=== PATIENT | female | born 1985 | race African-American/Black ===

== ENCOUNTER 2017-06-28 14:13 | Emergency (ER) | payer SELFPAY ==
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
[2017-06-28 14:42] VITALS: BP 120/82; PULSE 78; TEMP 98.3; BMI 35.2
== END 2017-06-28 14:50 | disposition home or self-care (01) ==
LOC: FER 14:13
DX: S13.4XXA Sprain of ligaments of cervical spine, initial encounter (principal); V43.62XA Car passenger injured in collision with other type car in traffic accident, initial encounter; Y93.89 Activity, other specified; Y92.410 Unspecified street and highway as the place of occurrence of the external cause
CPT/HCPCS: 99281-25

== ENCOUNTER 2018-08-23 11:52 | Emergency (ER) | payer OTHER ==
[2018-08-23 12:14] VITALS: BMI 32.8
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
[2018-08-23] MEDS ORDERED: SODIUM CHLORIDE 1,000 ML IV STA (12:36)
[2018-08-23] MEDS ORDERED: ACETAMINOPHEN 1000 MG/100 ML VIAL (NON FORMULARY) IVPB ONE (12:36)
[2018-08-23] MEDS ORDERED: ACETAMINOPHEN INJECTION 100 ML IVPB ONE (12:42)
--- NOTE | 2018-08-23 12:42 | PDOC ---
*Physical Exam - Vital Signs Last Vital Signs Temp Pulse Resp BP Pulse Ox 98.2 F 83 17 123/63 99 08/23/18 12:11 08/23/18 12:11 08/23/18 12:11 08/23/18 12:11 08/23/18 12:11 - Physical Exam Comments: 08/23/18 12:42 The patient was examined by [YESICA Goldman] under my direct supervision. I personally evaluated the patient. I concur with the above findings and the plan of care.
[2018-08-23 12:49] LABS: PH,URINE 6.5 (5.0-8.0); URINE APPEARANCE CLEAR; URINE BILIRUBIN NEGATIVE (NEGATIVE); URINE COLOR YELLOW; URINE GLUCOSE (UA) NEGATIVE (NEGATIVE); URINE KETONE TRACE (NEGATIVE); URINE LEUK ESTERASE NEGATIVE (NEGATIVE); URINE NITRITE NEGATIVE (NEGATIVE); URINE PROTEIN NEGATIVE (NEGATIVE); URINE UROBILINOGEN 0.2 mg/dL (0.2-1.0)
[2018-08-23 13:09] LABS: BASO % 1.2 % (0-2.0); EOS % 1.8 % (0-4.5); HEMATOCRIT 37.7 % (32.4-45.2); HEMOGLOBIN 12.8 GM/dL (10.7-15.3); LYMPH % 34.1 % (8-40); MCH 31.2 pg (25.7-33.7); MCHC 33.9 g/dl (32.0-36.0); MEAN PLT VOLUME 8.4 fl (7.5-11.1); MONO % 5.6 % (3.8-10.2); NEUT % 57.3 % (42.8-82.8); PLATELET COUNT 296 K/MM3 (134-434); RDW 12.5 % (11.6-15.6)
[2018-08-23 13:50] LABS: ALBUMIN 3.7 g/dl (3.4-5.0); BILIRUBIN,TOTAL 0.5 mg/dL (0.2-1); CALCIUM 8.8 mg/dL (8.5-10.1); CREATININE 0.7 mg/dL (0.55-1.3); POTASSIUM 3.8 mmol/L (3.5-5.1)
[2018-08-23 16:37] VITALS: BP 120/61; PULSE 71; TEMP 97.9
== END 2018-08-23 16:10 | disposition home or self-care (01) ==
LOC: JER 11:52
PROC: 3E0337Z Introduction of Electrolytic and Water Balance Substance into Peripheral Vein, Percutaneous Approach (ICD-10-PCS; principal; 2018-08-23)
DX: O26.891 Other specified pregnancy related conditions, first trimester (principal); Z3A.00 Weeks of gestation of pregnancy not specified; O20.0 Threatened abortion
CPT/HCPCS: 36415; 76817-TC; 80053; 81003; 84702; 85025; 87086; 99282-25; J7030

== ENCOUNTER 2018-08-30 08:32 | Day surgery (SDC) | payer OTHER ==
[2018-08-29 14:13] VITALS: BMI 33.1
--- NOTE | 2018-08-30 09:17 | HP ---
Past Medical History - Smoking History Smoking history: Never smoked Have you smoked in the past 12 months: No - Alcohol/Substance Use Hx Alcohol Use: No Home Medications - Allergies Allergies/Adverse Reactions: Allergies Allergy/AdvReac Type Severity Reaction Status Date / Time No Known Allergies Allergy Verified 08/23/18 12:11 - Home Medications Home Medications: Ambulatory Orders Acetaminophen [Tylenol -] 500 mg PO PRN 08/29/18 No122/Iron/Folic Acid [ Multi Tablet] 1 each PO DAILY 08/29/18
[2018-08-30] MEDS ORDERED: MIDAZOLAM HCL 2 MG/2 ML SINGLE DOSE VIAL ONE ×3 (10:04→10:21)
[2018-08-30] MEDS ORDERED: ONDANSETRON 4 MG/2 ML VIAL IVPUSH PRN ×2 (10:11→11:14)
[2018-08-30] MEDS ORDERED: IBUPROFEN 400 MG TABLET (FP) PO PRN (10:11)
[2018-08-30] MEDS ORDERED: ACETAMINOPHEN 325 MG TABLET (FP) PO PRN (10:11)
[2018-08-30] MEDS ORDERED: oxyCODONE HCL 5 MG TABLET PO PRN (10:11)
[2018-08-30] MEDS ORDERED: DOXYCYCLINE HYCLATE 100 MG VIAL IVPB ONE (10:12)
[2018-08-30] MEDS ORDERED: DOXYCYCLINE INJECTION 100 MG in DEXTROSE 5%-WATER 100 ML IVPB ONE (10:15)
--- NOTE | 2018-08-30 10:15 | HP ---
Admitting History and Physical - Admission History of Present Illness: 33 yo @ 7 wks by dates, 6 wk pole, no cardiac activity, for surgical management Limitations to Obtaining History: No Limitations - Past Medical History Cardiovascular: No: HTN Pulmonary: No: Asthma ...LMP: 07/13/18 Heme/Onc: No: Anemia - Past Surgical History Past Surgical History: Yes: None - Smoking History Smoking history: Never smoked Have you smoked in the past 12 months: No - Alcohol/Substance Use Hx Alcohol Use: No Home Medications - Allergies Allergies/Adverse Reactions: Allergies Allergy/AdvReac Type Severity Reaction Status Date / Time No Known Allergies Allergy Verified 08/30/18 09:31 - Home Medications Home Medications: Ambulatory Orders Acetaminophen [Tylenol -] 500 mg PO PRN 08/29/18 No122/Iron/Folic Acid [ Multi Tablet] 1 each PO DAILY 08/29/18 Family Disease History - Family Disease History Family History: Denies Review of Systems - Review of Systems Constitutional: reports: No Symptoms Cardiovascular: reports: No Symptoms Respiratory: reports: No Symptoms Gastrointestinal: reports: No Symptoms Genitourinary: reports: No Symptoms Endocrine: reports: No Symptoms Psychiatric: reports: No Symptoms Physical Examination Vital Signs: Vital Signs Temperature 98.4 F 08/30/18 09:20 Pulse Rate 70 08/30/18 09:20 Respiratory Rate 16 08/30/18 09:20 Blood Pressure 118/69 08/30/18 09:20 O2 Sat by Pulse Oximetry (%) 96 08/30/18 09:20 Constitutional: Yes: Well Nourished, No Distress, Calm Respiratory: Yes: Regular, CTA Bilaterally Gastrointestinal: Yes: Normal Bowel Sounds, Soft Neurological: Yes: Alert, Oriented Assessment/Plan 33 yo @ 7 wks MAB 1. Consents reviewed and signed 2. Doxycycline interventional pain physician 3. Discussed postop medication - methergine and doxycycline 4. Will propcoeed to OR
[2018-08-30] MEDS ORDERED: DEXAMETHASONE SOD PHOSPHATE 4 MG/1 ML VIAL ONE (10:33)
--- NOTE | 2018-08-30 10:59 | OP ---
Operative Note - Note: Operative Date: 08/30/18 Pre-Operative Diagnosis: missed 7 wks Operation: suction dilation and curettage Findings: gestational sac, no FH; thin stripe at the end of procedure Surgeon: Karolyn Manley Anesthesiologist/SAW GRINDER: Tye Reese Anesthesia: General Estimated Blood Loss (mls): 50 Fluid Volume Replaced (mls): 600 Operative Report Dictated: Yes
[2018-08-30] MEDS ORDERED: KETOROLAC TROMETHAMINE 30 MG/1 ML VIAL IVPUSH ONE (11:15)
[2018-08-30] MEDS ORDERED: LACTATED RINGERS SOLUTION 1,000 ML IV SCH (11:15)
[2018-08-30] MEDS ORDERED: KETOROLAC TROMETHAMINE 30 MG/1 ML VIAL ONE (11:19)
--- NOTE | 2018-08-30 12:52 | OP ---
DATE OF OPERATION: 08/30/2018 SURGERY: Suction dilation and curettage. PREOPERATIVE DIAGNOSIS: Missed at 7 weeks. POSTOPERATIVE DIAGNOSIS: Missed at 7 weeks. FINDINGS: Gestational sac, no FH, thin stripe in the procedure under ultrasound. ANESTHESIA: Tye Reese MD SURGEON: Karolyn Manley MD ESTIMATED BLOOD LOSS: 50 mL. FLUIDS GIVEN: 600 mL. INDICATION: The patient is a 33-year-old, 1, para 0, at 7 weeks by dates, found to have a 6-week gestational sac, 6-week pole with no FH, verified on ultrasound. She desired surgical management. She was counseled regarding risks , benefits, alternatives, complications of procedure including infection, bleeding , damage to surrounding organs such as the bowel, bladder, uterine perforation. She expressed understanding, was brought to the operating room. When anesthesia was found to be adequate, patient was prepped and draped in normal sterile fashion, placed in dorsal lithotomy position, using Chan stirrups. A weighted speculum was placed in the patient's vagina. The anterior lip of the cervix was grasped using an Allis clamp. The cervix was gently dilated to accommodate to a size 23 Azeri Hanks dilator. A size 7 curved rigid curette was placed in the patient's uterus, confirmed under bedside ultrasound, and a vacuum was applied to an operative pressure of 70 mmHg. Gentle sharp curetting was performed, with the removal of tissue. A 2nd pass was performed, with scant tissue noted. Bedside ultrasound revealed a thin stripe. Gentle sharp curetting was performed and all instruments were removed from the patient's vagina. Patient tolerated the procedure well. Estimated blood loss was 50 mL. The patient was brought to recovery room in stable condition. Ej [id number] MTDD
[2018-08-30 14:02] VITALS: BP 107/63; PULSE 73; TEMP 97.9
--- NOTE | 2018-09-01 17:16 | PATH ---
Surgical Pathology Report Patient Name: LUCIANO SPENCER [facility]. Rec. #: [id number] /Age/Gender: 1985 (Age: 33) / F Account: [id number] Location: [facility] SURGICAL Taken: 08/30/2018 Received: 08/30/2018 Reported: 09/01/2018 Physicians: Karolyn Manley Specimen(s) Received PRODUCTS OF CONCEPTION Clinical History Missed Final Diagnosis PRODUCTS OF CONCEPTION, DILATION AND CURETTAGE: VERY RARE VILLOUS TISSUE, DECIDUA, AND GESTATIONAL ENDOMETRIUM CONSISTENT WITH PRODUCTS OF CONCEPTION. BENIGN CERVICAL SQUAMOUS EPITHELIUM PRESENT. Electronically Signed Stephania Smart M.D. Gross Description Received in formalin labeled "products of conception," is a 3.2 x 2.0 x 0.3 cm aggregate of red-brown soft tissue fragments. No definite villous tissue or somatic tissue is identified. The formalin is filtered and the specimen is entirely submitted in one cassette. /08/30/2018 saudi08/30/2018
== END 2018-08-30 13:45 | disposition home or self-care (01) ==
LOC: JASU-SURG 08:32
PROVIDERS: ATTEND Obstetrics & Gynecology
PROC: 10D17ZZ Extraction of Products of Conception, Retained, Via Natural or Artificial Opening (ICD-10-PCS; principal; 2018-08-30 10:00)
DX: O02.1 Missed abortion (principal)
CPT/HCPCS: 86850; 86900; 86901; 88305-TC; 94760